=== PATIENT | female | born 1960 | race Caucasian/White ===

== ENCOUNTER 2023-07-21 04:39 | Day surgery (SDC) | payer OTHER ==
[2023-07-18 10:40] VITALS: BMI 36.3
[2023-07-21 09:15] VITALS: BP 133/55; PULSE 56; RESP 14; TEMP 97
== END 2023-07-21 09:21 | disposition home or self-care (01) ==
LOC: JASU-ENDO 04:39
PROVIDERS: ATTEND Internal Medicine Gastroenterology
PROC: 0DJD8ZZ Inspection of Lower Intestinal Tract, Via Natural or Artificial Opening Endoscopic (ICD-10-PCS; principal; 2023-07-21 08:00)
DX: Z12.11 Encounter for screening for malignant neoplasm of colon (principal); Z83.719 Family history of colon polyps, unspecified